=== PATIENT | male | born 1940 | race Caucasian/White ===

== ENCOUNTER 2024-07-25 05:01 | Inpatient (IN) ==
[2024-07-18 14:19] LABS: Basophils # (Auto) 0.03 K/mcL (0.00-0.30); Basophils % (Auto) 0.7 % (0.0-2.0); Eosinophils # (Auto) 0.17 K/mcL (0.00-0.70); Eosinophils % (Auto) 3.7 % (0.0-7.0); Hematocrit 33.3 % (40.1-51.0); Hemoglobin 10.5 g/dL (13.7-17.5); Lymphocytes % (Auto) 15.3 % (15.5-49.0); Mean Cell Volume 104.1 fL (80.0-100.0); Mean Corpuscular HGB Conc 31.5 g/dL (31.0-36.0); Mean Platelet Volume 9.9 fL (8.8-12.5); Monocytes % (Auto) 8.7 % (1.0-12.0); Neutrophils % (Auto) 71.6 % (38.0-78.0); Platelet Count 155 K/mcL (140-440); WBC 4.6 K/mcL (4.5-11.0)
[2024-07-18 14:33] LABS: Prothrombin Time 13.8 sec (11.9-14.5)
[2024-07-18 14:55] LABS: ALT/SGPT 17 U/L (<40); AST/SGOT 24 U/L (<40); Albumin 4.1 gm/dL (3.2-5.2); Albumin/Globulin Ratio 1.9 (1.0-2.3); Alkaline Phosphatase 94 U/L (39-117); Bilirubin,Total 0.3 mg/dL (0.1-1.0); Blood Urea Nitrogen 17 mg/dL (8-23); Calcium 9.2 mg/dL (8.6-10.4); Carbon Dioxide 30 mmol/L (22-30); Chloride 99 mmol/L (96-108); Globulin 2.2 gm/dL (2.2-3.7); Glomerular Filtration Rate 70; Glucose 96 mg/dL (70-105); Potassium 4.4 mmol/L (3.3-5.1); Sodium 137 mmol/L (133-145)
[2024-07-25] MEDS: 0.9 % SODIUM CHLORIDE 250 ML IV SCH (05:53)
[2024-07-25 06:41] LABS: Appearance,Urine Clear (Clear); Bilirubin,Urine Negative (Negative); Color,Urine Yellow; Glucose,Urine (UA) Negative (Negative); Ketones,Urine 15 mg/dL (Negative); Leukocyte Esterase,Urine Negative /uL (Negative); Mucus,Urine Few /hpf; Nitrate,Urine Negative (Negative); PH,Urine 5.5 (5.0-9.0); Protein,Urine Trace mg/dL (Negative); Specific Gravity,Urine 1.025 (1.000-1.035); Urine Blood Trace-intact ery/mcL (Negative); Urine Hyaline Cast 18 /lph (0-2); Urine RBC 0 /hpf (0-3); Urine Squamous Epithelial Cell 0 /hpf (0-4); Urine WBC 0 /hpf (0-4); Urobilinogen,Urine Normal
[2024-07-25] MEDS ORDERED: KETAMINE 50 MG/ML Syringe IV ONE (07:00)
[2024-07-25] MEDS ORDERED: ONDANSETRON 4 MG/2 ML VIAL ONE (07:01)
[2024-07-25] MEDS ORDERED: LIDOCAINE 2% PF 5 ML VIAL ONE ×2 (07:01→08:41)
[2024-07-25] MEDS ORDERED: PROPOFOL 200 MG/20 ML VIAL IV ONE (07:01)
[2024-07-25] MEDS ORDERED: ROCURONIUM 10 MG/ML ML IV ONE (07:01)
[2024-07-25] MEDS ORDERED: MAGNESIUM SULFATE 2 GM/50 ML BAG IV ONE (07:01)
[2024-07-25] MEDS ORDERED: DEXAMETHASONE 10 MG/ML VIAL ONE (07:01)
[2024-07-25] MEDS ORDERED: fentaNYL 100 MCG/2 ML VIAL ONE (07:01)
[2024-07-25] MEDS: CEFEPIME 2 GM VIAL IV SCH (07:13)
[2024-07-25] MEDS: metroNIDAZOLE 500 MG/100 ML BAG IV SCH ×2 (07:21→12:48)
[2024-07-25] MEDS ORDERED: PHENYLephrine 1 MG/10 ML SYRINGE (ANEST) ONE (07:40)
[2024-07-25] MEDS ORDERED: ePHEDrine 50 MG/5 ML SYRINGE (ANEST) IV ONE (07:47)
[2024-07-25] MEDS ORDERED: HYDROmorphone 0.5 MG/0.5 ML SYRINGE ONE ×2 (08:13→08:43)
[2024-07-25] MEDS ORDERED: ROPIVACAINE HCL/PF 30 ML VIAL IJ ONE (08:40)
[2024-07-25] MEDS ORDERED: SUGAMMADEX SODIUM 200 MG/2 ML VIAL IV ONE (08:44)
[2024-07-25] MEDS ORDERED: ONDANSETRON 4 MG/2 ML VIAL IV PRN ×2 (08:59→09:10)
[2024-07-25] MEDS ORDERED: NALOXONE HCL 0.4 MG/ML VIAL IV PRN (08:59)
[2024-07-25] MEDS ORDERED: IPRATROPIUM/ALBUTEROL 3 ML AMPUL.NEB NEB PRN (08:59)
[2024-07-25] MEDS ORDERED: LACTATED RINGERS 250 ML IV PRN (08:59)
[2024-07-25] MEDS ORDERED: MEPERIDINE 25 MG/ML VIAL IV PRN (08:59)
[2024-07-25] MEDS ORDERED: diphenhydrAMINE 50 MG/ML VIAL IV PRN (08:59)
[2024-07-25] MEDS ORDERED: fentaNYL 100 MCG/2 ML VIAL IV PRN (08:59)
[2024-07-25] MEDS ORDERED: HYDROmorphone 0.5 MG/0.5 ML SYRINGE IV PRN (09:10)
[2024-07-25] MEDS: ACETAMINOPHEN 1,000 MG/100 ML BAG IV ONE (09:32)
[2024-07-25] MEDS: METHOCARBAMOL 1,000 MG/10 ML VIAL IV PRN (09:57)
[2024-07-25] MEDS ORDERED: metroNIDAZOLE 500 MG/100 ML BAG IV SCH (10:00)
[2024-07-25] MEDS: LACTATED RINGERS 1,000 ML IV SCH (10:29)
[2024-07-25] MEDS: 0.9 % SODIUM CHLORIDE 1,000 ML IV SCH (10:37)
[2024-07-25] MEDS: METOCLOPRAMIDE 10 MG/2 ML VIAL IV SCH (12:47)
[2024-07-25] MEDS: 0.9 % SODIUM CHLORIDE 10 ML SYRINGE IV SCH (14:55)
[2024-07-25] MEDS: CEFEPIME 1 GM VIAL IV SCH (14:55)
[2024-07-25] MEDS ORDERED: ACETAMINOPHEN 1,000 MG/100 ML BAG IV SCH (16:00)
[2024-07-25] MEDS: ACETAMINOPHEN 1,000 MG/100 ML BAG IV SCH (17:30)
[2024-07-26 05:57] LABS: Basophils # (Auto) 0.01 K/mcL (0.00-0.30); Basophils % (Auto) 0.1 % (0.0-2.0); Eosinophils # (Auto) 0 K/mcL (0.00-0.70); Eosinophils % (Auto) 0 % (0.0-7.0); Hematocrit 32.4 % (40.1-51.0); Hemoglobin 10.3 g/dL (13.7-17.5); Lymphocytes # (Auto) 0.58 K/mcL (1.50-4.80); Lymphocytes % (Auto) 5.3 % (15.5-49.0); Mean Cell Volume 101.9 fL (80.0-100.0); Mean Corpuscular HGB Conc 31.8 g/dL (31.0-36.0); Mean Platelet Volume 10.2 fL (8.8-12.5); Monocytes # (Auto) 0.94 K/mcL (0.10-0.90); Monocytes % (Auto) 8.6 % (1.0-12.0); Neutrophils % (Auto) 85.8 % (38.0-78.0); Platelet Count 184 K/mcL (140-440); RBC 3.18 M/mcL (4.63-6.08); Red Cell Distribution Width 13.6 % (11.5-14.5); WBC 10.9 K/mcL (4.5-11.0)
[2024-07-26 06:27] LABS: ALT/SGPT 19 U/L (<40); AST/SGOT 25 U/L (<40); Albumin 3.7 gm/dL (3.2-5.2); Albumin/Globulin Ratio 1.7 (1.0-2.3); Alkaline Phosphatase 72 U/L (39-117); Bilirubin,Direct 0.3 mg/dL (<0.3); Bilirubin,Total 0.5 mg/dL (0.1-1.0); Blood Urea Nitrogen 23 mg/dL (8-23); Calcium 8.4 mg/dL (8.6-10.4); Carbon Dioxide 29 mmol/L (22-30); Chloride 99 mmol/L (96-108); Globulin 2.2 gm/dL (2.2-3.7); Glomerular Filtration Rate 79; Glucose 125 mg/dL (70-105); Lactate Dehydrogenase 157 U/L (135-225); Phosphorous 3.3 mg/dL (2.5-4.5); Potassium 4.1 mmol/L (3.3-5.1); Sodium 136 mmol/L (133-145); Triglycerides 47 mg/dL (<150); Uric Acid 6.2 mg/dL (2.5-8.0)
[2024-07-26] MEDS ORDERED: BENZOCAINE/MENTHOL 1 LOZENGE PO PRN (13:06)
[2024-07-27 05:43] LABS: Basophils # (Auto) 0.01 K/mcL (0.00-0.30); Basophils % (Auto) 0.1 % (0.0-2.0); Eosinophils # (Auto) 0.01 K/mcL (0.00-0.70); Eosinophils % (Auto) 0.1 % (0.0-7.0); Hematocrit 33.3 % (40.1-51.0); Hemoglobin 10.5 g/dL (13.7-17.5); Mean Cell Volume 103.7 fL (80.0-100.0); Mean Corpuscular HGB Conc 31.5 g/dL (31.0-36.0); Mean Platelet Volume 10.4 fL (8.8-12.5); Monocytes # (Auto) 0.64 K/mcL (0.10-0.90); Monocytes % (Auto) 6.3 % (1.0-12.0); Neutrophils % (Auto) 88.3 % (38.0-78.0); Platelet Count 175 K/mcL (140-440); RBC 3.21 M/mcL (4.63-6.08); Red Cell Distribution Width 14.1 % (11.5-14.5); WBC 10.1 K/mcL (4.5-11.0)
[2024-07-27 06:18] LABS: ALT/SGPT 16 U/L (<40); AST/SGOT 25 U/L (<40); Albumin 3.7 gm/dL (3.2-5.2); Albumin/Globulin Ratio 1.5 (1.0-2.3); Alkaline Phosphatase 74 U/L (39-117); Bilirubin,Direct 0.2 mg/dL (<0.3); Bilirubin,Total 0.4 mg/dL (0.1-1.0); Blood Urea Nitrogen 23 mg/dL (8-23); Calcium 9.2 mg/dL (8.6-10.4); Carbon Dioxide 35 mmol/L (22-30); Chloride 96 mmol/L (96-108); Globulin 2.5 gm/dL (2.2-3.7); Glomerular Filtration Rate 79; Glucose 116 mg/dL (70-105); Lactate Dehydrogenase 160 U/L (135-225); Phosphorous 2.7 mg/dL (2.5-4.5); Potassium 3.2 mmol/L (3.3-5.1); Sodium 144 mmol/L (133-145); Triglycerides 54 mg/dL (<150)
[2024-07-27] MEDS: POTASSIUM CHLORIDE 40 MEQ in DEXTROSE 5% IN WATER 500 ML IV SCH (15:49)
[2024-07-27] MEDS: 0.9 % SODIUM CHLORIDE 1,000 ML IV SCH (16:04)
[2024-07-27] MEDS: diphenhydrAMINE 50 MG/ML VIAL IV SCH (21:00)
[2024-07-28 06:08] LABS: Basophils # (Auto) 0.01 K/mcL (0.00-0.30); Basophils % (Auto) 0.1 % (0.0-2.0); Eosinophils % (Auto) 1.2 % (0.0-7.0); Hematocrit 32.9 % (40.1-51.0); Hemoglobin 10.2 g/dL (13.7-17.5); Lymphocytes # (Auto) 0.62 K/mcL (1.50-4.80); Lymphocytes % (Auto) 7.2 % (15.5-49.0); Mean Cell Volume 105.8 fL (80.0-100.0); Mean Platelet Volume 10.3 fL (8.8-12.5); Monocytes # (Auto) 0.63 K/mcL (0.10-0.90); Monocytes % (Auto) 7.3 % (1.0-12.0); Neutrophils % (Auto) 84.1 % (38.0-78.0); Platelet Count 160 K/mcL (140-440); RBC 3.11 M/mcL (4.63-6.08); Red Cell Distribution Width 14.2 % (11.5-14.5); WBC 8.6 K/mcL (4.5-11.0)
[2024-07-28 06:35] LABS: ALT/SGPT 14 U/L (<40); AST/SGOT 22 U/L (<40); Albumin 3.5 gm/dL (3.2-5.2); Albumin/Globulin Ratio 1.5 (1.0-2.3); Alkaline Phosphatase 70 U/L (39-117); Bilirubin,Direct 0.2 mg/dL (<0.3); Bilirubin,Total 0.4 mg/dL (0.1-1.0); Blood Urea Nitrogen 26 mg/dL (8-23); Calcium 8.9 mg/dL (8.6-10.4); Carbon Dioxide 33 mmol/L (22-30); Chloride 100 mmol/L (96-108); Globulin 2.4 gm/dL (2.2-3.7); Glomerular Filtration Rate 70; Glucose 108 mg/dL (70-105); Lactate Dehydrogenase 157 U/L (135-225); Phosphorous 1.9 mg/dL (2.5-4.5); Potassium 3.1 mmol/L (3.3-5.1); Sodium 143 mmol/L (133-145); Triglycerides 61 mg/dL (<150); Uric Acid 7.1 mg/dL (2.5-8.0)
[2024-07-28] MEDS: 0.9 % SODIUM CHLORIDE 1,000 ML IV ONE (12:59)
[2024-07-28] MEDS: POTASSIUM PHOSPHATE 40 MEQ in DEXTROSE 5% IN WATER 500 ML IV SCH (15:30)
[2024-07-29 06:06] LABS: Basophils # (Auto) 0.02 K/mcL (0.00-0.30); Basophils % (Auto) 0.3 % (0.0-2.0); Eosinophils # (Auto) 0.29 K/mcL (0.00-0.70); Eosinophils % (Auto) 3.8 % (0.0-7.0); Hematocrit 31.8 % (40.1-51.0); Lymphocytes # (Auto) 0.57 K/mcL (1.50-4.80); Lymphocytes % (Auto) 7.5 % (15.5-49.0); Mean Corpuscular HGB Conc 31.4 g/dL (31.0-36.0); Mean Platelet Volume 10.3 fL (8.8-12.5); Monocytes # (Auto) 0.56 K/mcL (0.10-0.90); Monocytes % (Auto) 7.4 % (1.0-12.0); Neutrophils % (Auto) 80.9 % (38.0-78.0); Platelet Count 155 K/mcL (140-440); Red Cell Distribution Width 14.2 % (11.5-14.5); WBC 7.6 K/mcL (4.5-11.0)
[2024-07-29 06:54] LABS: ALT/SGPT 18 U/L (<40); AST/SGOT 34 U/L (<40); Albumin 3.2 gm/dL (3.2-5.2); Albumin/Globulin Ratio 1.5 (1.0-2.3); Alkaline Phosphatase 82 U/L (39-117); Bilirubin,Direct 0.2 mg/dL (<0.3); Bilirubin,Total 0.5 mg/dL (0.1-1.0); Blood Urea Nitrogen 23 mg/dL (8-23); Calcium 8.6 mg/dL (8.6-10.4); Carbon Dioxide 34 mmol/L (22-30); Chloride 102 mmol/L (96-108); Globulin 2.2 gm/dL (2.2-3.7); Glomerular Filtration Rate 83; Glucose 100 mg/dL (70-105); Lactate Dehydrogenase 171 U/L (135-225); Potassium 2.9 mmol/L (3.3-5.1); Sodium 148 mmol/L (133-145); Triglycerides 84 mg/dL (<150); Uric Acid 5.8 mg/dL (2.5-8.0)
[2024-07-29] MEDS: POTASSIUM CHLORIDE 40 MEQ in DEXTROSE 5% IN WATER 500 ML IV SCH (10:27)
[2024-07-30 06:51] LABS: Basophils # (Auto) 0.03 K/mcL (0.00-0.30); Basophils % (Auto) 0.4 % (0.0-2.0); Eosinophils % (Auto) 6.6 % (0.0-7.0); Hematocrit 34.4 % (40.1-51.0); Hemoglobin 10.7 g/dL (13.7-17.5); Lymphocytes % (Auto) 11.8 % (15.5-49.0); Mean Cell Volume 104.2 fL (80.0-100.0); Mean Corpuscular HGB Conc 31.1 g/dL (31.0-36.0); Mean Platelet Volume 10.5 fL (8.8-12.5); Monocytes % (Auto) 7.9 % (1.0-12.0); Neutrophils % (Auto) 73.2 % (38.0-78.0); Platelet Count 161 K/mcL (140-440); Red Cell Distribution Width 13.6 % (11.5-14.5); WBC 7.6 K/mcL (4.5-11.0)
[2024-07-30 07:06] LABS: ALT/SGPT 27 U/L (<40); AST/SGOT 35 U/L (<40); Albumin 3.3 gm/dL (3.2-5.2); Albumin/Globulin Ratio 1.4 (1.0-2.3); Alkaline Phosphatase 65 U/L (39-117); Bilirubin,Direct 0.3 mg/dL (<0.3); Bilirubin,Total 0.6 mg/dL (0.1-1.0); Blood Urea Nitrogen 21 mg/dL (8-23); Calcium 8.5 mg/dL (8.6-10.4); Carbon Dioxide 28 mmol/L (22-30); Chloride 104 mmol/L (96-108); Globulin 2.3 gm/dL (2.2-3.7); Glomerular Filtration Rate 83; Glucose 111 mg/dL (70-105); Lactate Dehydrogenase 177 U/L (135-225); Phosphorous 2.3 mg/dL (2.5-4.5); Sodium 141 mmol/L (133-145); Triglycerides 94 mg/dL (<150); Uric Acid 3.9 mg/dL (2.5-8.0)
[2024-07-30] MEDS: POTASSIUM CHLORIDE 40 MEQ in DEXTROSE 5% IN WATER 500 ML IV ONE (15:30)
[2024-07-30] MEDS: POTASSIUM CHLORIDE 20 MEQ TABLET PO ONE (15:57)
[2024-07-30] MEDS: POTASSIUM CHLORIDE 10 MEQ/100 ML BAG IV SCH (15:57)
[2024-07-31] MEDS: LEVOTHYROXINE 75 MCG TABLET PO SCH (07:24)
[2024-07-31 07:50] LABS: Blood Urea Nitrogen 20 mg/dL (8-23); Calcium 8.3 mg/dL (8.6-10.4); Carbon Dioxide 26 mmol/L (22-30); Chloride 101 mmol/L (96-108); Glomerular Filtration Rate 88; Glucose 106 mg/dL (70-105); Potassium 3.4 mmol/L (3.3-5.1); Sodium 136 mmol/L (133-145)
[2024-07-31 13:17] VITALS: TEMP 97.9; O2SAT 97
== END 2024-07-31 15:22 | disposition home or self-care (01) | DRG 331 ==
LOC: MEDSUR 05:01
PROVIDERS: ADMIT Family Medicine Adult Medicine; ATTEND Family Medicine Adult Medicine